=== PATIENT | female | born 1990 | race American Indian/Alaskan Native ===

== ENCOUNTER 2017-05-16 12:38 | Emergency (ER) | payer OTHER ==
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
[2017-05-16 13:43] VITALS: BP 125/79
[2017-05-16] MEDS ORDERED: TYLENOL #3 PO ONE (14:04)
[2017-05-16] MEDS ORDERED: FLEXERIL PO ONE (14:04)
--- NOTE | 2017-05-16 14:51 | XRay Report ---
THORACIC SPINE: Trauma, pain The bones are normally mineralized with well preserved vertebral height, alignment and interspace distances. No paraspinal soft tissue widening is noted. IMPRESSION: Normal study.
--- NOTE | 2017-05-16 14:52 | XRay Report ---
LEFT HUMERUS: Trauma, pain AP and lateral views of the humerus demonstrate normal mineralization and contours for this patient's age. No destructive changes are noted and the adjacent soft tissues are normal. IMPRESSION: Normal left humerus.
--- NOTE | 2017-05-16 14:52 | XRay Report ---
LEFT FEMUR: Trauma, pain. AP and lateral views of the femur demonstrate normal mineralization and contours for this patient's age. No destructive changes are noted and the adjacent soft tissues are normal. IMPRESSION: Normal left femur.
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
--- NOTE | 2017-05-16 14:53 | XRay Report ---
AP AND LATERAL LUMBOSACRAL SPINE: Trauma, pain The vertebral bodies are well mineralized and normal in alignment and vertebral height with well preserved interspace distances. The visualized portions of the posterior elements are normal. IMPRESSION: Normal study.
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
== END 2017-05-16 16:06 | disposition home or self-care (01) ==
LOC: EDBD → ED 12:38
DX: S40.022A Contusion of left upper arm, initial encounter (principal); G44.309 Post-traumatic headache, unspecified, not intractable; S09.90XA Unspecified injury of head, initial encounter; V89.2XXA Person injured in unspecified motor-vehicle accident, traffic, initial encounter; Y93.89 Activity, other specified; Y92.89 Other specified places as the place of occurrence of the external cause; Y99.8 Other external cause status
CPT/HCPCS: 70450; 72070; 72100; 72125; 99284